=== PATIENT | male | born 1945 | race African-American/Black ===

== ENCOUNTER 2024-02-11 12:52 | Inpatient (IN) | payer MEDICARE ==
[~2024-02-11] VITALS: Ht 182.9 cm; Wt 72.6 kg
[2024-02-11 12:56] VITALS: O2SAT 97
[2024-02-11] MEDS: SODIUM CHLORIDE 0.9% 1,000 ML IV ONE ×3 (13:15→16:37)
[2024-02-11] MEDS ORDERED: CLONIDINE 0.2MG TABLET PO ONE (13:30)
[2024-02-11] MEDS ORDERED: ONDANSETRON HCL 4MG/2ML INJ IV ONE (13:30)
[2024-02-11 13:51] LABS: HEMATOCRIT. 40.8 % (42.0-52.0); HEMOGLOBIN. 13.2 g/dL (14.0-18.0); MEAN CORPUSCULAR HEMOGLOBIN 28.1 pg (28.0-32.0); MEAN CORPUSCULAR HGB CONC 32.4 g/dL (31.0-37.0); MEAN CORPUSCULAR VOLUME 86.6 fL (80.0-94.0); PLATELET 239 x1000/uL (130-400); RED BLOOD CELL COUNT 4.71 mill/uL (4.7-6.1); RED CELL DISTRIBUTION WIDTH 14.1 % (11.6-14.6); WHITE BLOOD COUNT 4.4 x1000/uL (4.5-11.0)
[2024-02-11 13:57] LABS: DIFFERENTIAL COMMENT 1
[2024-02-11 14:02] LABS: CHLORIDE 111 mEq/L (98-107); PARTIAL THROMBOPLASTIN TIME 24.2 sec (23.4-31.0); POTASSIUM 3.3 mEq/L (3.5-5.1); PROTHROMBIN TIME 11.4 sec (9.6-11.0); SODIUM 143 mEq/L (136-145)
[2024-02-11 14:03] LABS: CALCIUM 9.5 mg/dL (8.7-10.4); CARBON DIOXIDE 19 mEq/L (21-32)
[2024-02-11 14:08] LABS: CREATININE 2.7 mg/dL (0.6-1.3); GLUCOSE 362 mg/dL (70-105); UREA NITROGEN BLOOD 31 mg/dL (9-23)
[2024-02-11 14:09] LABS: TROPONIN I HIGH SENSITIVITY 36 ng/L (3.0-53)
[2024-02-11 14:10] LABS: ALANINE AMINOTRANSFERASE 13 IU/L (10-49); ALBUMIN 3.9 g/dL (3.2-4.8); ASPARTATE AMINOTRANSFERASE 25 IU/L (<34); PROTEIN TOTAL 6.3 g/dL (6.0-8.3)
[2024-02-11 14:33] LABS: PLATELET ESTIMATE NORMAL
[2024-02-11] MEDS: CLONIDINE 0.1MG TABLET PO NR (14:33)
[2024-02-11] MEDS: ONDANSETRON HCL 4MG/2ML INJ IV NR ×2 (14:33→15:56)
[2024-02-11 14:34] LABS: ANISOCYTOSIS 1+
[2024-02-11] MEDS: POTASSIUM CHLORIDE 20MEQ/PACKET PO ONE (14:45)
[2024-02-11] MEDS ORDERED: HYDRALAZINE 20MG/ML VIAL IV NR (15:15)
[2024-02-11] MEDS: LABETALOL 5MG/ML 4ML INJ IV NR ×2 (15:44→19:04)
[2024-02-11 15:54] LABS: CLARITY URINE CLEAR (CLEAR); COLOR URINE YELLOW (YELLOW); GLUCOSE URINE 3+ (NEGATIVE); KETONES URINE 1+ (NEGATIVE); LEUKOCYTE ESTERASE URINE NEGATIVE (NEGATIVE); NITRITE URINE NEGATIVE (NEGATIVE); OCCULT BLOOD URINE 1+ (NEGATIVE); PROTEIN URINE 3+ (NEGATIVE); SPECIFIC GRAVITY URINE 1.013 (1.005-1.030); UROBILINOGEN URINE 0.2 E.U./dL (0.2-1.0)
[2024-02-11] MEDS ORDERED: ACETAMINOPHEN 325MG TABLET PO PRN (16:00)
[2024-02-11] MEDS ORDERED: IPRATROPIUM/ALBUTEROL 0.5-3(2.5)MG/3ML NEB HHN PRN (16:00)
[2024-02-11] MEDS ORDERED: PIPERACILLIN/TAZOBACTAM 3.375 G in DEXTROSE 5% WATER 50 ML IV SCH (16:00)
[2024-02-11 16:09] LABS: BACTERIA URINE TRACE; SQUAMOUS EPITHELIAL CELL URINE RARE /lpf (RARE/1+); WBC URINE 0-2 /hpf (0-2)
[2024-02-11] MEDS: VANCOMYCIN 1.5GM/250ML IV NR (16:25)
[2024-02-11] MEDS: PANTOPRAZOLE SODIUM 40 MG/VIAL IV SCH (16:25)
[2024-02-11] MEDS: CARVEDILOL 6.25 MG TABLET PO NR (16:43)
[2024-02-11] MEDS: HYDRALAZINE HCL 25MG TABLET PO SCH (16:43)
[2024-02-11] MEDS: ISOSORBIDE MONONITRATE 30MG TABLET SR 24HR PO SCH (16:43)
[2024-02-11] MEDS: CLONIDINE HCL 0.1MG/24HR PATCH TD SCH (16:51)
[2024-02-11] MEDS: KCL 20MEQ/100ML PREMIX 100 ML IV NR ×2 (17:00→22:53)
[2024-02-11] MEDS: PIPERACILLIN/TAZO 3.375G/50ML IV SCH (17:00)
[2024-02-11] MEDS: BLOOD SUGAR DIAGNOSTIC STRIP TEST SCH (17:00)
[2024-02-11 17:22] LABS: PHOSPHORUS 2.8 mg/dL (2.5-4.9)
[2024-02-11] MEDS: INSULIN LISPRO 100 UNITS/ML SUBCUT SCH (18:39)
[2024-02-11 20:15] LABS: POTASSIUM 3.1 mEq/L (3.5-5.1)
[2024-02-11] MEDS: HYDRALAZINE HCL 100MG TABLET PO SCH (21:12)
[2024-02-11] MEDS: CARVEDILOL 6.25 MG TABLET PO SCH (21:12)
[2024-02-11] MEDS: AMLODIPINE 5MG TABLET PO SCH (21:13)
[2024-02-11] MEDS: INSULIN GLARGINE 100 UNITS/ML SUBCUT SCH (22:55)
[2024-02-12] VITALS (9 sets, daily range): BP systolic 119–174; BP diastolic 62–92; PULSE 84–106; RESP 15–20; TEMP 97–98.1
[2024-02-12 01:12] LABS: POTASSIUM 3.5 mEq/L (3.5-5.1)
[2024-02-12 01:13] LABS: CALCIUM 9.4 mg/dL (8.7-10.4)
[2024-02-12 01:18] LABS: CREATININE 2.4 mg/dL (0.6-1.3)
[2024-02-12] MEDS: HYDRALAZINE 20MG/ML VIAL IV PRN (02:50)
[2024-02-12] MEDS: DEXTROSE 50% WATER 50ML SYRINGE IV PRN (08:43)
[2024-02-12] MEDS: HYDRALAZINE HCL 100MG TABLET PO SCH (09:04)
[2024-02-12] MEDS: DEXTROSE 5% WATER 1,000 ML IV SCH (09:23)
[2024-02-12] MEDS ORDERED: INSULIN GLARGINE 100 UNITS/ML SUBCUT SCH (10:00)
[2024-02-12 10:26] LABS: CREATINE KINASE 60 IU/L (46-171)
[2024-02-12] MEDS: KCL 20MEQ/100ML PREMIX 100 ML IV NR (10:39)
[2024-02-12] MEDS: SODIUM CHLORIDE 0.9% 1,000 ML IV SCH (10:56)
[2024-02-12] MEDS: ENOXAPARIN 80MG/0.8ML SYR SUBCUT SCH (11:21)
[2024-02-12] MEDS ORDERED: PRED5TAB48 PO (17:12)
[2024-02-12] MEDS ORDERED: POTA-205 MT (17:12)
[2024-02-12] MEDS ORDERED: MYCO180T3 PO (17:12)
[2024-02-12] MEDS ORDERED: CARV25TA47 PO (17:12)
[2024-02-12] MEDS ORDERED: CLON0.2T PO (17:12)
[2024-02-12] MEDS ORDERED: APIX5TAB PO (17:12)
[2024-02-12] MEDS ORDERED: CALC0.253 PO (17:12)
[2024-02-12] MEDS ORDERED: PANT40TA51 PO (17:12)
[2024-02-12] MEDS ORDERED: AMLO5TAB88 PO (17:12)
[2024-02-12] MEDS ORDERED: ATOR40TA70 PO (17:12)
[2024-02-12] MEDS ORDERED: VALS80TA30 PO (17:12)
[2024-02-12] MEDS ORDERED: FURO40TA5 PO (17:12)
[2024-02-12] MEDS: DEXT 5%/0.45% NACL 1000ML 1,000 ML IV SCH (18:01)
[2024-02-12] MEDS ORDERED: NEPVIT MT (18:30)
[2024-02-13] VITALS (12 sets, daily range): BP systolic 140–177; BP diastolic 60–145; PULSE 92–138; RESP 10–22; TEMP 97.5–99.1
[2024-02-13 07:20] LABS: HEMATOCRIT. 34.2 % (42.0-52.0); HEMOGLOBIN. 11.1 g/dL (14.0-18.0); MEAN CORPUSCULAR HEMOGLOBIN 27.4 pg (28.0-32.0); MEAN CORPUSCULAR HGB CONC 32.5 g/dL (31.0-37.0); MEAN CORPUSCULAR VOLUME 84.4 fL (80.0-94.0); MEAN PLATELET VOLUME 9.4 fl (7.4-10.4); PLATELET 188 x1000/uL (130-400); RED BLOOD CELL COUNT 4.06 mill/uL (4.7-6.1); RED CELL DISTRIBUTION WIDTH 13.9 % (11.6-14.6); WHITE BLOOD COUNT 5.3 x1000/uL (4.5-11.0)
[2024-02-13 07:22] LABS: CALCIUM 9.1 mg/dL (8.7-10.4); POTASSIUM 3.1 mEq/L (3.5-5.1)
[2024-02-13 07:25] LABS: DIFFERENTIAL COMMENT 1
[2024-02-13 07:28] LABS: CREATININE 2.7 mg/dL (0.6-1.3)
[2024-02-13] MEDS: CARVEDILOL 6.25 MG TABLET PO NR (09:27)
[2024-02-13] MEDS: DIGOXIN 500MCG/2ML AMP IV NR (10:11)
[2024-02-13] MEDS: VANCOMYCIN 1.5GM/250ML 250 ML IV SCH (13:19)
[2024-02-13] MEDS: KCL 20MEQ/100ML PREMIX 100 ML IV NR (15:52)
[2024-02-13 16:37] LABS: PLATELET ESTIMATE NORMAL
[2024-02-13] MEDS: DIGOXIN 125MCG TABLET PO SCH (18:17)
[2024-02-13] MEDS: MYCOPHENOLATE SODIUM 180 MG TABLET.DR PO SCH (21:11)
[2024-02-13] MEDS: CARVEDILOL 12.5MG TABLET PO SCH (21:12)
[2024-02-13] MEDS: METOCLOPRAMIDE HCL 10MG/2ML VIAL IV NR (21:12)
[2024-02-14] VITALS (12 sets, daily range): BP systolic 103–158; BP diastolic 52–99; PULSE 68–98; RESP 10–22; TEMP 98.1–99.4
[2024-02-14 07:02] LABS: HEMATOCRIT. 33.5 % (42.0-52.0); HEMOGLOBIN. 10.8 g/dL (14.0-18.0); MEAN CORPUSCULAR HEMOGLOBIN 27.9 pg (28.0-32.0); MEAN CORPUSCULAR HGB CONC 32.3 g/dL (31.0-37.0); MEAN CORPUSCULAR VOLUME 86.4 fL (80.0-94.0); MEAN PLATELET VOLUME 9.8 fl (7.4-10.4); PLATELET 187 x1000/uL (130-400); RED BLOOD CELL COUNT 3.88 mill/uL (4.7-6.1); RED CELL DISTRIBUTION WIDTH 14.2 % (11.6-14.6); WHITE BLOOD COUNT 3.5 x1000/uL (4.5-11.0)
[2024-02-14 07:05] LABS: DIFFERENTIAL COMMENT 1
[2024-02-14 07:13] LABS: CALCIUM 8.7 mg/dL (8.7-10.4)
[2024-02-14 07:17] LABS: CREATININE 2.8 mg/dL (0.6-1.3)
[2024-02-14] MEDS: FAMOTIDINE 20MG/2ML VIAL IV SCH (09:40)
[2024-02-14] MEDS: PREDNISONE 5MG TABLET PO SCH (09:40)
[2024-02-14] MEDS: POTASSIUM CHLORIDE 20MEQ TABLET SR PO SCH (09:40)
[2024-02-14] MEDS: METOCLOPRAMIDE HCL 10MG/2ML VIAL IV SCH (09:41)
[2024-02-14] MEDS: DEXT 5%/0.45% NACL 1000ML 1,000 ML IV SCH (09:43)
[2024-02-14] MEDS: POTASSIUM CHLORIDE 20MEQ TABLET SR PO NR (12:32)
[2024-02-14] MEDS: FUROSEMIDE 20MG/2ML VIAL IVP SCH (12:32)
[2024-02-14] MEDS: MYCOPHENOLATE SODIUM 180 MG TABLET.DR PO SCH (17:44)
[2024-02-14 18:14] LABS: PLATELET ESTIMATE NORMAL
[2024-02-15] VITALS: BP 131/69; PULSE 80; RESP 14; TEMP 99.6
[2024-02-15 01:15] VITALS: BP 144/66; PULSE 74; RESP 18; TEMP 98.2
[2024-02-15 07:43] LABS: T4 FREE 1.13 ng/dL (0.89-1.76)
[2024-02-15 07:44] LABS: THYROID STIMULATING HORMONE 1.32 uIU/mL (0.55-4.78)
[2024-02-15 07:55] LABS: FOLIC ACID (FOLATE) SERUM 7.62 ng/mL (>5.38); VITAMIN B12 SERUM 574 pg/mL (211-911)
[2024-02-15 13:44] LABS: HEMATOCRIT. 32.2 % (42.0-52.0); HEMOGLOBIN. 10.5 g/dL (14.0-18.0); MEAN CORPUSCULAR HEMOGLOBIN 28.5 pg (28.0-32.0); MEAN CORPUSCULAR HGB CONC 32.6 g/dL (31.0-37.0); MEAN CORPUSCULAR VOLUME 87.6 fL (80.0-94.0); MEAN PLATELET VOLUME 9.3 fl (7.4-10.4); PLATELET 195 x1000/uL (130-400); RED BLOOD CELL COUNT 3.68 mill/uL (4.7-6.1); RED CELL DISTRIBUTION WIDTH 14.1 % (11.6-14.6); WHITE BLOOD COUNT 3.4 x1000/uL (4.5-11.0)
[2024-02-15 13:46] LABS: DIFFERENTIAL COMMENT 1
[2024-02-15 13:54] LABS: POTASSIUM 3.4 mEq/L (3.5-5.1)
[2024-02-15 13:56] LABS: CALCIUM 8.6 mg/dL (8.7-10.4)
[2024-02-15 14:01] LABS: CREATININE 3.2 mg/dL (0.6-1.3)
[2024-02-15 15:08] LABS: PLATELET ESTIMATE NORMAL
[2024-02-15 16:00] VITALS: BP 152/52; PULSE 84; RESP 18; TEMP 97.4
[2024-02-15 20:00] VITALS: BP 152/78; PULSE 77; RESP 19; TEMP 98.2
[2024-02-16] VITALS: BP 150/73; PULSE 80; RESP 20; TEMP 98.7
[2024-02-16 04:00] VITALS: BP 182/77; PULSE 73; RESP 19; TEMP 98.7
[2024-02-16 07:40] LABS: POTASSIUM 3.3 mEq/L (3.5-5.1)
[2024-02-16 07:41] LABS: CALCIUM 8.8 mg/dL (8.7-10.4)
[2024-02-16 08:00] VITALS: BP 169/75; PULSE 82; RESP 20; TEMP 97.9
[2024-02-16] MEDS: POTASSIUM CHLORIDE 20MEQ/PACKET PO NR (09:09)
[2024-02-16 12:00] VITALS: BP 147/72; PULSE 84; RESP 18; TEMP 97.4
[2024-02-16 16:00] VITALS: BP 148/79; PULSE 80; RESP 16; TEMP 98
[2024-02-16 17:16] VITALS: BP 148/79; PULSE 80; TEMP 98
[2024-02-16] MEDS ORDERED: APIX5TAB PO (23:13)
[2024-02-16] MEDS ORDERED: MYCO360T3 MT (23:13)
[2024-02-16] MEDS ORDERED: AMLO5TAB88 PO (23:23)
[2024-02-16] MEDS ORDERED: DOCU100T PO (23:23)
[2024-02-16] MEDS ORDERED: FURO-151 PO (23:23)
[2024-02-16] MEDS ORDERED: MYCO180T3 MT (23:23)
[2024-02-16] MEDS ORDERED: CLON0.2T PO (23:23)
[2024-02-16] MEDS ORDERED: CALC0.253 PO (23:23)
[2024-02-16] MEDS ORDERED: COR25 PO (23:23)
[2024-02-16] MEDS ORDERED: PRED5TAB PO (23:23)
[2024-02-16] MEDS ORDERED: POTA-205 PO (23:23)
[2024-02-16] MEDS ORDERED: VALS80TA30 PO (23:23)
[2024-02-16] MEDS ORDERED: INSU100I28 SQ (23:23)
[2024-02-16] MEDS ORDERED: LIP40 PO (23:23)
== END 2024-02-16 19:00 | DRG 304 ==
LOC: ER 12:52 → MICUSO 15:04 → EDBEDREQ 15:11 → EDBEDREQTM 15:11 → ER 02-12 04:53 → 5EST 02-12 06:09 → 7EST 02-15 00:56
PROVIDERS: ADMIT Hospitalist; ATTEND Hospitalist
PROC: 4A00X4Z Measurement of Central Nervous Electrical Activity, External Approach (ICD-10-PCS; principal; 2024-02-15)
DX: I16.1 Hypertensive emergency (principal); G82.50 Quadriplegia, unspecified; G92.8 Other toxic encephalopathy; N17.9 Acute kidney failure, unspecified; E87.0 Hyperosmolality and hypernatremia; R47.01 Aphasia; R65.10 Systemic inflammatory response syndrome (SIRS) of non-infectious origin without acute organ dysfunction; R41.4 Neurologic neglect syndrome; Z94.0 Kidney transplant status; I13.0 Hypertensive heart and chronic kidney disease with heart failure and stage 1 through stage 4 chronic kidney disease, or unspecified chronic kidney disease; I48.0 Paroxysmal atrial fibrillation; E86.0 Dehydration; I50.9 Heart failure, unspecified; N18.9 Chronic kidney disease, unspecified; E87.6 Hypokalemia; Z20.822 Contact with and (suspected) exposure to COVID-19; J44.9 Chronic obstructive pulmonary disease, unspecified; E78.00 Pure hypercholesterolemia, unspecified; R62.7 Adult failure to thrive; M48.02 Spinal stenosis, cervical region; D64.9 Anemia, unspecified; D72.819 Decreased white blood cell count, unspecified; E11.22 Type 2 diabetes mellitus with diabetic chronic kidney disease; R47.1 Dysarthria and anarthria; Z68.21 Body mass index [BMI] 21.0-21.9, adult; Z86.73 Personal history of transient ischemic attack (TIA), and cerebral infarction without residual deficits; Z79.4 Long term (current) use of insulin; Z79.60 Long term (current) use of unspecified immunomodulators and immunosuppressants; Z91.199 Patient's noncompliance with other medical treatment and regimen due to unspecified reason; Z79.899 Other long term (current) drug therapy
CPT/HCPCS: 36415; 70551; 71045; 72141; 76770; 80048; 80053; 80061; 80202; 81003; 82010; 82550; 82607; 82746; 82962; 83036; 83605; 83735; 83880; 84100; 84132; 84145; 84439; 84443; 84481; 84484; 85025; 85651; 87426; 93005; 97162; 97166; 99285; J0360; J1160; J1650; J1815; J1940; J2405; J2470; J2543; J2765; J3370; J3480; J3490; J7030; J7512; J7517